=== PATIENT | female | born 1980 ===

== ENCOUNTER 2020-09-14 06:15 | Day surgery (SDC) | payer BC, SELFPAY ==
[~2020-09-14] VITALS: Ht 157.5 cm; Wt 80.5 kg
[~2020-09-14 06:15] MED LIST: Calcium Carbon500 MG; Flonase 0.05% N16 GM; Tri-Sprintec1 EACH
[2020-09-14] MEDS ORDERED: PSEUDOEPHEDRINE30 M1 PO (06:56)
[2020-09-14] MEDS ORDERED: OMEP20ER PO (06:56)
[2020-09-14] MEDS ORDERED: THERA-D2000 UNIT PO (06:57)
--- NOTE | 2020-09-14 09:38 | NUR ---
09/14/20 0938 Terri Fernandez PT RESTING IN BED. PT NOTIFIED OF DELAY OF START TO SURGERY. AMBULATED TO BATHROOM WITHOUT PROBLEMS. PT BACK TO BED, DENIES NEEDS AT THIS TIME. FAMILY UPDATED ON DELAY.
== END 2020-09-14 13:50 | disposition home or self-care (01) ==
LOC: ORSCSDS 06:15
PROVIDERS: Otolaryngology
PROC: 0CTPXZZ Resection of Tonsils, External Approach (ICD-10-PCS; principal; 2020-09-14 07:30)
PROC: 09B Ear, Nose, Sinus, Excision (ICD-10-PCS; principal; 2020-09-14 07:30)
DX: J35.1 Hypertrophy of tonsils (principal); K13.79 Other lesions of oral mucosa; J45.909 Unspecified asthma, uncomplicated; K21.9 Gastro-esophageal reflux disease without esophagitis; E66.9 Obesity, unspecified; Z68.32 Body mass index [BMI] 32.0-32.9, adult; Z79.899 Other long term (current) drug therapy
CPT/HCPCS: 88304; A9270; J1100; J2250; J2405; J2550; J2704; J2765; J3010; J7120